=== PATIENT | female | born 1960 | race Caucasian/White ===

== ENCOUNTER 2020-03-12 20:42 | Emergency (ER) | payer OTHER ==
[~2020-03-12] VITALS: Ht 172.7 cm; Wt 58.5 kg
[2020-03-12 20:46] VITALS: BP 164/93
--- NOTE | 2020-03-12 20:55 | NUR ---
PT AMBULATED TO CHAIR C.
--- NOTE | 2020-03-12 21:15 | NUR ---
59 YEAR OLD FEMALE COMPLAINS OF BURNING AND BLOOD IN URINATION X YESTERDAY NIGHT. PT STATES HER SYMPTOMS ARE SIMILAR TO PREVIOUS UTI. PT AOX4, BREAHTING EVEN AND UNLABORED, SKIN WARM AND DRY. BED IN LOWESWT POSITION, LOCKED, BED RAIL UPX1. PMH - HTN, HEART DISEASE ALLERGIES - NKA
[2020-03-12 21:20] VITALS: BP 137/90
--- NOTE | 2020-03-12 21:20 | NUR ---
Patient discharged with v/s stable. Written and verbal after care instructions about urinary tract infection given and explained. Patient alert, oriented and verbalized understanding of instructions. Ambulatory with steady gait. All questions addressed prior to discharge. ID band removed. Patient advised to follow up with PMD. Rx of Cipro and Pyridium given. Patient educated on indication of medication including possible reaction and side effects. Opportunity to ask questions provided and answered.
== END 2020-03-12 21:20 | disposition home or self-care (01) ==
LOC: MED 20:42
DX: N39.0 Urinary tract infection, site not specified (principal); F17.200 Nicotine dependence, unspecified, uncomplicated; Z98.890 Other specified postprocedural states
CPT/HCPCS: 81002; 81025; 99283

== ENCOUNTER 2021-03-21 14:55 | Emergency (ER) | payer SELFPAY ==
[~2021-03-21] VITALS: Ht 172.7 cm; Wt 58.1 kg
[2021-03-21 15:21] VITALS: BP 148/91
[2021-03-21] MEDS ORDERED: LID5T TP (17:32)
[2021-03-21] MEDS: KETOROLAC 30 MG/ML VIAL IM ONE (17:41)
[2021-03-21] MEDS: DEXAMETHASONE 10 MG/ML VIAL IM ONE (17:41)
[2021-03-21 17:53] VITALS: BP 148/91
== END 2021-03-21 17:50 | disposition home or self-care (01) ==
LOC: MED 14:55
DX: M16.12 Unilateral primary osteoarthritis, left hip (principal); I10 Essential (primary) hypertension; Z98.890 Other specified postprocedural states
CPT/HCPCS: 72170; 73502; 96372; 99284; J1100; J1885